=== PATIENT | male | born 1980 | race Hispanic/Latino ===

== ENCOUNTER 2017-10-15 21:29 | Emergency (ER) | payer OTHER, SELFPAY ==
--- NOTE | 2017-10-15 22:31 | RAD ---
THREE VIEWS LEFT SHOULDER 10/15/17 COMPARISON: None. HISTORY: Fall, trauma, pain. FINDINGS: There is no widening of the acromioclavicular or coracoclavicular interspace. There is no dislocation or fracture. IMPRESSION: No acute findings. POS: [facility]
[2017-10-15] MEDS ORDERED: HYDROcodone/Acetaminophen 5/325 mg Tablet ONE (22:56)
== END 2017-10-15 23:03 | disposition home or self-care (01) ==
LOC: ERS 21:29
DX: S43.422A Sprain of left rotator cuff capsule, initial encounter (principal); W19.XXXA Unspecified fall, initial encounter; Y93.66 Activity, soccer

== ENCOUNTER 2019-01-14 09:33 | Outpatient (CLI) | payer BC ==
--- NOTE | 2019-01-14 10:03 | RAD ---
XR Foot Lt 3 View STANDARD HISTORY: Injury, left heel pain FINDINGS: No fracture or dislocation is identified.
== END 2019-01-14 09:34 | disposition home or self-care (01) ==
LOC: BICRAD 09:33
PROVIDERS: ATTEND Physician Assistant
DX: M79.672 Pain in left foot (principal)

== ENCOUNTER 2022-02-08 11:08 | Emergency (ER) | payer BC ==
[2022-02-08] MEDS ORDERED: Ketorolac Tromethamine 30 MG/ML VIAL ONE (11:31)
[2022-02-08] MEDS ORDERED: Acetaminophen 500 MG TAB ONE (11:31)
== END 2022-02-08 12:22 | disposition home or self-care (01) ==
LOC: ERS 11:08
DX: S33.5XXA Sprain of ligaments of lumbar spine, initial encounter (principal); X50.9XXA Other and unspecified overexertion or strenuous movements or postures, initial encounter
CPT/HCPCS: 96372; 99283; J1885